=== PATIENT | male | born 1955 | race Caucasian/White ===

== ENCOUNTER 2017-08-01 06:52 | Day surgery (SDC) | payer OTHER ==
[2017-08-01] MEDS ORDERED: PROPOFOL 500 MG/50 ML EMU IV ONE ×2 (07:32→08:26)
[2017-08-01 09:09] VITALS: BP 120/68; PULSE 63; RESP 20; TEMP 96.5; O2SAT 97
== END 2017-08-01 09:49 | disposition home or self-care (01) | DRG 951 ==
LOC: SURG 06:52
PROVIDERS: ATTEND Surgery
DX: Z12.11 Encounter for screening for malignant neoplasm of colon (principal); D12.0 Benign neoplasm of cecum; Z86.010 Personal history of colon polyps; D12.5 Benign neoplasm of sigmoid colon; D12.3 Benign neoplasm of transverse colon
CPT/HCPCS: 99001; J2704

== ENCOUNTER 2018-03-25 13:43 | Emergency (ER) | payer OTHER ==
[2018-03-25 13:43] VITALS: O2SAT 97
[2018-03-25 13:53] VITALS: BP 155/75; PULSE 67; RESP 18; TEMP 97.6
[2018-03-25] MEDS ORDERED: FUROSEMIDE 40 MG SOL ONE (13:55)
[2018-03-25] MEDS ORDERED: LIDOCAINE HCL 2% MPF 10 ML SOL ONE (14:17)
[2018-03-25] MEDS ORDERED: BACITRACIN 500 U/GM OIN TOP ONE ×2 (14:19→15:07)
[2018-03-25] MEDS ORDERED: LIDOCAINE HCL 2% MPF 10 ML SOL SC ONE (15:07)
== END 2018-03-25 15:00 | disposition home or self-care (01) | DRG 605 ==
LOC: ED 13:43
DX: S61.213A Laceration without foreign body of left middle finger without damage to nail, initial encounter (principal)
CPT/HCPCS: 12001; 99283; J1940; A6402; A9270-GY